=== PATIENT | female | born 1950 ===

== ENCOUNTER 2020-09-19 06:20 | Day surgery (SDC) | payer OTHER ==
[~2020-09-19 06:20] MED LIST: CALTRATE GUMMY1 EACH PO; FOSAMAX70 MG PO; GLIMEPIRIDE1 MG; NORVASC2.5 M1 PO; PROBIOTIC1 EAC2 PO; VASOTEC10 MG PO
[2020-09-19] MEDS ORDERED: ULTRACET PO (10:16)
[2020-09-19] MEDS ORDERED: MACROBID 100 M100 MG PO (10:16)
== END 2020-09-19 13:10 | disposition home or self-care (01) ==
LOC: CIR.AMB 06:20
PROVIDERS: ATTEND Obstetrics & Gynecology Gynecology
DX: N81.11 Cystocele, midline (principal); Z20.822 Contact with and (suspected) exposure to COVID-19